=== PATIENT | male | born 1995 | race African-American/Black ===

== ENCOUNTER 2023-09-30 06:39 | Emergency (ER) | payer SELFPAY ==
[~2023-09-30] VITALS: Ht 162.6 cm; Wt 70.0 kg
[2023-09-30 06:41] VITALS: BP 115/85; PULSE 67; RESP 18; TEMP 98.4; O2SAT 100
[2023-09-30] MEDS ORDERED: ALBUTEROL (0.083%) 2.5MG/3ML NEB HHN ONE (07:00)
[2023-09-30] MEDS ORDERED: IPRATROPIUM/ALBUTEROL 0.5-3(2.5)MG/3ML NEB HHN ONE (07:00)
[2023-09-30] MEDS: PREDNISONE 20MG TABLET PO STA (07:10)
== END 2023-09-30 07:56 | disposition left against medical advice (07) ==
LOC: ER 06:39
DX: R07.89 Other chest pain (principal); F12.90 Cannabis use, unspecified, uncomplicated; J45.909 Unspecified asthma, uncomplicated
CPT/HCPCS: 99283; J7512